=== PATIENT | female | born 1950 | race Caucasian/White ===

== ENCOUNTER 2018-05-23 20:22 | Emergency (ER) | payer OTHER ==
--- NOTE | 2018-05-23 20:29 | PDOC ---
Attending Attestation - HPI HPI: 05/23/18 21:27 The patient is a 67 year old female with a significant PMH of scoliosis and epilepsy, and is a [facility] resident, who presents to the emergency department with left forearm pain for the past 2 days. Patient states she had an xray done two days ago which was normal and then had another XR done today showed a fracture of the distal ulna. Patient took a percocet earlier today for pain. Patient is unable to recall any trauma. The patient denies chest pain, shortness of breath, headache and dizziness. Denies fever, chills, nausea, vomit, diarrhea and constipation. Denies dysuria, frequency, urgency and hematuria. Allergies: NKA Past surgical history: None reported. Social history: No reported alcohol or drug use. Former smoker. PCP: Dr. Mckenna - Physicial Exam PE: 05/23/18 21:31 ADULT EXAM GENERAL: Awake, alert, and fully oriented, in no acute distress HEAD: No signs of trauma EYES: PERRLA, EOMI, sclera anicteric, conjunctiva clear ENT: Auricles normal inspection, hearing grossly normal, nares patent, oropharynx clear without exudates. Moist mucosa NECK: Normal ROM, supple, no lymphadenopathy, JVD, or masses LUNGS: Breath sounds equal, clear to auscultation bilaterally. No wheezes, and no crackles HEART: Regular rate and rhythm, normal S1 and S2, no murmurs, rubs or gallops ABDOMEN: Soft, nontender, normoactive bowel sounds. No guarding, no rebound. No masses EXTREMITIES: (+) Pain with pronation to the left forearm. (+) Old bruising to the left forearm and an old hematoma with sharp demarcations. (+) Left forearm tenderness and swelling. Remainder of the extremities have FROM. NEUROLOGICAL: Cranial nerves II through XII grossly intact. Normal speech. SKIN: Warm, Dry, normal turgor, no rashes or lesions noted. <Shania Curtis - Last Filed: 05/23/18 22:11> - Resident Resident Name: Violetta Bragg - ED Attending Attestation I have performed the following: I have examined & evaluated the patient, The case was reviewed & discussed with the resident, I agree w/resident's findings & plan - Medical Decision Making 05/24/18 04:06 Pt has a spiral fracture of her left ulna. She is right handed. She has multiple old fractures in the hand that are healed. She has brusing and swelling of the arm, with sharp demarcations of the hematoma. Pt is able to supinate and pronate, but pain with supination. She has good pulses. She hasgood strength in the fingers in the wrist and fingers, FROM of the shoulder and the elbow. She has no other complaints. 05/24/18 04:08 Pt will be placed in a double sugartong cast and she will be sent to ortho as an outpatient. Nothing specific for the pain. <Zainab Cameron - Last Filed: 05/24/18 04:09>
[2018-05-23 20:41] VITALS: BMI 19.8
[2018-05-23] MEDS ORDERED: IBUPROFEN 400 MG TABLET (FP) PO ONE ×2 (21:03→21:09)
--- NOTE | 2018-05-23 21:08 | PDOC ---
History of Present Illness - General Chief Complaint: Pain, Acute Stated Complaint: POSSIBLE FRACTURE Time Seen by Provider: 05/23/18 20:27 - History of Present Illness Initial Comments: 05/23/18 21:05 from [place] history of epilepsy, HLD, MDD, osteoporosis 2 days of L forearm pain, does not recall trauma had xr done yesterday that was normal xr done today said it showed fracture patient took percocet 2 hours ago for pain. nursing called ems due to L wrist pain, swelling and bruising. patient takes ASA 81 and lamotrigine Patient is R handed Past History - Past Medical History Allergies/Adverse Reactions: Allergies Allergy/AdvReac Type Severity Reaction Status Date / Time No Known Allergies Allergy Verified 05/23/18 21:03 - Suicide/Smoking/Psychosocial Hx Smoking History: Never smoked Have you smoked in the past 12 months: No Information on smoking cessation initiated: No Hx Alcohol Use: No Drug/Substance Use Hx: No *Physical Exam - Vital Signs Last Vital Signs Temp Pulse Resp BP Pulse Ox 97.8 F 72 18 181/92 H 98 05/23/18 20:22 05/23/18 20:22 05/23/18 20:22 05/23/18 20:22 05/23/18 20:22 - Physical Exam Comments: 05/23/18 21:07 L wrist NV intact swollen, redness with brusiing up the arm, tender to palpation over the wrist and upgong into the proximal forearm ROM ristricted to 20 degrees extension, 45 degrees flexion 2/2 to pain strength 5/5 brusing in the forearm no tenderness in elbow or shoudler Moderate Sedation - Procedure Monitoring Vital Signs: Procedure Monitoring Vital Signs Temperature 97.8 F 05/23/18 20:22 Pulse Rate 72 05/23/18 20:22 Respiratory Rate 18 05/23/18 20:22 Blood Pressure 181/92 H 05/23/18 20:22 O2 Sat by Pulse Oximetry (%) 98 05/23/18 20:22 ED Treatment Course - RADIOLOGY Radiology Studies Ordered: Category Date Time Status FOREARM- LEFT [RAD] Stat Radiology 05/23/18 21:02 Ordered WRIST W/HAND-LEFT* [RAD] Stat Radiology 05/23/18 21:02 Ordered Medical Decision Making - Medical Decision Making 05/23/18 21:37 ED Course: fx vs contusion vs sprain less concerning for compartment syndrome as patient not pulseless, pain is not out of proportion, limb is not pale Pain medication L limb XR pending *DC/Admit/Observation/Transfer Diagnosis at time of Disposition: Ulnar fracture - Discharge Dispostion Disposition: HOME Condition at time of disposition: Stable Decision to Admit order: No - Referrals Referrals: Angélica Mckenna MD [Primary Care Provider] - Satya Glover MD [Staff Physician] - - Patient Instructions Printed Discharge Instructions: DI for Forearm Fracture Additional Instructions: You were seen in the ED for complaints of L forearm and wrist pain. In the ED you were evaluated with imaging. Your results showed a L distal ulnar fracture. There does not appear to be an acute need for immediate hospitalization. You are advised to follow up with your Primary Care Physician within 1 week. You were given a referral to Orthopedics and advised to follow up within 3-5 days. Take over the counter medication for pain management. You take percocet at home and this should help with your pain as well. Return to the ED immediately if you experience worsening L forearm pain, numbness, tingling, muscle weakness or fever. - Post Discharge Activity
[2018-05-24 01:07] VITALS: BP 152/70; PULSE 76; TEMP 98.1
== END 2018-05-24 01:07 ==
LOC: JER 20:22
PROC: 2W3DX1Z Immobilization of Left Lower Arm using Splint (ICD-10-PCS; principal; 2018-05-23)
DX: S52.242A Displaced spiral fracture of shaft of ulna, left arm, initial encounter for closed fracture (principal); X58.XXXA Exposure to other specified factors, initial encounter; Y93.9 Activity, unspecified; Y92.128 Other place in nursing home as the place of occurrence of the external cause; Y99.8 Other external cause status; G40.909 Epilepsy, unspecified, not intractable, without status epilepticus; F33.9 Major depressive disorder, recurrent, unspecified; E78.5 Hyperlipidemia, unspecified; M81.0 Age-related osteoporosis without current pathological fracture
CPT/HCPCS: 29125; 73090-TC-LT-FY; 73110-TC-LR-FY; 73130-TC-LT-FY; 99281-25